=== PATIENT | female | born 1970 | race Two or more races ===

== ENCOUNTER 2020-09-12 07:14 | Outpatient (CLI) | payer OTHER | END 2020-09-12 07:29 | disposition home or self-care (01) | LOC: MRI 07:14 | PROVIDERS: ATTEND Specialist | DX: M45.4 Ankylosing spondylitis of thoracic region (principal); M45.0 Ankylosing spondylitis of multiple sites in spine | CPT/HCPCS: 72147 ==

== ENCOUNTER 2020-09-18 07:36 | Outpatient (CLI) | payer OTHER | END 2020-09-18 07:55 | disposition home or self-care (01) | LOC: NUCLEAR 07:36 | PROVIDERS: ATTEND Specialist | DX: M45.0 Ankylosing spondylitis of multiple sites in spine (principal) | CPT/HCPCS: 78306; A9503 ==